=== PATIENT | male | born 1970 | race Caucasian/White ===

== ENCOUNTER → 2018-04-23 | Outpatient (CLI) | payer OTHER | LOC: M RAD 13:31 | DX: R50.9 Fever, unspecified (principal); R05 Cough | CPT/HCPCS: 71046 ==

== ENCOUNTER 2018-04-26 10:39 | Emergency (ER) | payer OTHER | END 2018-04-26 12:21 | disposition home or self-care (01) | LOC: M ED 10:39 | DX: J06.9 Acute upper respiratory infection, unspecified (principal); Z72.0 Tobacco use; Z79.899 Other long term (current) drug therapy | CPT/HCPCS: 99283 ==

== ENCOUNTER 2018-05-23 19:44 | Emergency (ER) | payer OTHER ==
[2018-05-23 21:07] LABS: BASO # 0.1 10^3/uL (0.0-0.2); BASO % 0.8 % (0.0-1.0); EOS # 0.5 10^3/uL (0.0-0.50); EOS % 3.1 % (0.0-3.0); HEMATOCRIT 42.8 % (42.0-52.0); HEMOGLOBIN 14.5 g/dl (13.5-17.5); IMMATURE GRANULOCYTE % 0.6 % (0-3.0); LYMPH # 2.8 10^3/uL (1.5-4.5); LYMPH % 19.3 % (24.0-44.0); MEAN CORPUSCULAR HEMOGLOBIN 29.5 pg (27.0-33.0); MEAN CORPUSCULAR HGB CONC 33.9 g/dl (32.0-36.5); MONO # 0.9 10^3/uL (0.0-0.8); MONO % 6.3 % (0.0-5.0); NEUTROPHILS % 69.9 % (36.0-66.0); PLATELET COUNT, AUTOMATED 292 10^3/uL (150-450); RED BLOOD COUNT 4.92 10^6/uL (4.30-6.10); RED CELL DISTRIBUTION WIDTH 12.1 % (11.5-14.5); WHITE BLOOD COUNT 14.4 10^3/uL (4.0-10.0)
[2018-05-23 21:24] LABS: ALBUMIN 3.1 GM/DL (3.2-5.2); ALBUMIN/GLOBULIN RATIO 0.69 (1.00-1.93); ALKALINE PHOSPHATASE 75 U/L (45-117); ALT/SGPT 29 U/L (12-78); ANION GAP 8 MEQ/L (8-16); AST/SGOT 20 U/L (7-37); BILIRUBIN,DIRECT 0.2 MG/DL (0.0-0.2); BILIRUBIN,TOTAL 0.4 MG/DL (0.2-1.0); BLOOD UREA NITROGEN 14 MG/DL (7-18); CARBON DIOXIDE LEVEL 28 MEQ/L (21-32); CHLORIDE LEVEL 104 MEQ/L (98-107); CPK CREATINE PHOSPHOKINASE 424 U/L (39-308); CREATININE FOR GFR 0.98 MG/DL (0.70-1.30); GLOMERULAR FILTRATION RATE > 60.0 (>60); GLUCOSE, FASTING 111 MG/DL (70-100); MB/CK RELATIVE INDEX 0.73 (< OR =4); SODIUM LEVEL 140 MEQ/L (136-145); TOTAL PROTEIN 7.6 GM/DL (6.4-8.2); TROPONIN I 0.02 NG/ML (< 0.10)
[2018-05-23 22:03] LABS: LACTIC ACID SEPSIS PROTOCOL 1.7 MMOL/L (0.4-2.0)
[2018-05-23 23:18] LABS: AMPHETAMINES LEVEL URINE NEGATIVE (NEGATIVE); BARBITURATES URINE NEGATIVE (NEGATIVE); BENZODIAZEPINES URINE NEGATIVE (NEGATIVE); CANNABINOIDS URINE NEGATIVE (NEGATIVE); COCAINE METABOLITE URINE NEGATIVE (NEGATIVE); METHADONE URINE NEGATIVE (NEGATIVE); OPIATES URINE NEGATIVE (NEGATIVE); PHENCYCLIDINE URINE NEGATIVE (NEGATIVE)
[2018-05-23] MEDS: levETIRAcetam INJection 1,000 MG in D5W 100 ML IV (23:45)
[2018-05-24] MEDS ORDERED: PROHANCE 279.3MG/ML 15ML VIAL (A9576) As Ordered (00:59)
[2018-05-24] MEDS ORDERED: PROHANCE 279.3MG/ML 5ML VIAL (A9576) As Ordered (00:59)
[2018-05-24] MEDS: dexameTHASONE 20 MG/5 ML VIAL (J1100) IV (04:13)
[2018-05-25 11:26] LABS: BEDSIDE GLUCOSE 118 MG/DL (70-105)
== END 2018-05-24 04:26 | disposition home or self-care (01) ==
LOC: M ED 05-24 04:26
DX: C79.31 Secondary malignant neoplasm of brain (principal); R56.9 Unspecified convulsions; R91.8 Other nonspecific abnormal finding of lung field; R00.0 Tachycardia, unspecified; J32.8 Other chronic sinusitis; Z79.899 Other long term (current) drug therapy
CPT/HCPCS: J1100

== ENCOUNTER → 2018-06-09 | Outpatient (REF) | payer OTHER ==
[2018-06-09 11:48] LABS: BASO # 0.1 10^3/uL (0.0-0.2); EOS # 1.3 10^3/uL (0.0-0.50); EOS % 11.6 % (0.0-3.0); HEMATOCRIT 41.1 % (42.0-52.0); HEMOGLOBIN 13.8 g/dl (13.5-17.5); IMMATURE GRANULOCYTE % 0.5 % (0-3.0); LYMPH # 2.6 10^3/uL (1.5-4.5); MEAN CORPUSCULAR HEMOGLOBIN 29.6 pg (27.0-33.0); MEAN CORPUSCULAR HGB CONC 33.6 g/dl (32.0-36.5); MEAN CORPUSCULAR VOLUME 88.2 fl (80.0-96.0); MONO # 0.8 10^3/uL (0.0-0.8); NEUTROPHILS % 55.9 % (36.0-66.0); PLATELET COUNT, AUTOMATED 281 10^3/uL (150-450); RED BLOOD COUNT 4.66 10^6/uL (4.30-6.10); RED CELL DISTRIBUTION WIDTH 12.7 % (11.5-14.5); WHITE BLOOD COUNT 10.8 10^3/uL (4.0-10.0)
[2018-06-09 12:31] LABS: BLOOD UREA NITROGEN 10 MG/DL (7-18); CARBON DIOXIDE LEVEL 26 MEQ/L (21-32); CHLORIDE LEVEL 105 MEQ/L (98-107); CREATININE FOR GFR 0.75 MG/DL (0.70-1.30); GLOMERULAR FILTRATION RATE > 60.0 (>60); GLUCOSE, FASTING 112 MG/DL (70-100); POTASSIUM SERUM 4.1 MEQ/L (3.5-5.1); SODIUM LEVEL 139 MEQ/L (136-145)
[2018-06-09 12:32] LABS: ALBUMIN 3.2 GM/DL (3.2-5.2); ALBUMIN/GLOBULIN RATIO 0.86 (1.00-1.93); ALKALINE PHOSPHATASE 66 U/L (45-117); ALT/SGPT 42 U/L (12-78); ANION GAP 8 MEQ/L (8-16); AST/SGOT 24 U/L (7-37); BILIRUBIN,TOTAL 0.3 MG/DL (0.2-1.0); C REACTIVE PROTEIN QUANTITATIV 2.22 MG/DL (0.00-0.30); TOTAL PROTEIN 6.9 GM/DL (6.4-8.2); VANCOMYCIN RANDOM 12.8 UG/ML
[2018-06-09 14:48] LABS: ERYTHROCYTE SEDIMENTATION RATE 126 mm/hr (0-15)
== END ==
LOC: M LAB REF 11:03
DX: R91.8 Other nonspecific abnormal finding of lung field (principal); G93.9 Disorder of brain, unspecified

== ENCOUNTER → 2018-06-12 | Outpatient (REF) | payer OTHER ==
[2018-06-12 10:58] LABS: BASO # 0.1 10^3/uL (0.0-0.2); BASO % 1.2 % (0.0-1.0); EOS % 9.2 % (0.0-3.0); HEMATOCRIT 43.4 % (42.0-52.0); IMMATURE GRANULOCYTE % 0.4 % (0-3.0); LYMPH # 2.6 10^3/uL (1.5-4.5); LYMPH % 23.7 % (24.0-44.0); MEAN CORPUSCULAR HEMOGLOBIN 30.2 pg (27.0-33.0); MEAN CORPUSCULAR HGB CONC 34.6 g/dl (32.0-36.5); MEAN CORPUSCULAR VOLUME 87.3 fl (80.0-96.0); MONO # 0.9 10^3/uL (0.0-0.8); MONO % 7.6 % (0.0-5.0); NEUTROPHILS # 6.5 10^3/uL (1.8-7.7); NEUTROPHILS % 57.9 % (36.0-66.0); PLATELET COUNT, AUTOMATED 314 10^3/uL (150-450); RED BLOOD COUNT 4.97 10^6/uL (4.30-6.10); RED CELL DISTRIBUTION WIDTH 12.8 % (11.5-14.5); WHITE BLOOD COUNT 11.2 10^3/uL (4.0-10.0)
[2018-06-12 11:26] LABS: ALBUMIN 3.4 GM/DL (3.2-5.2); ALBUMIN/GLOBULIN RATIO 0.83 (1.00-1.93); ALKALINE PHOSPHATASE 77 U/L (45-117); ALT/SGPT 39 U/L (12-78); ANION GAP 7 MEQ/L (8-16); AST/SGOT 16 U/L (7-37); BILIRUBIN,TOTAL 0.3 MG/DL (0.2-1.0); BLOOD UREA NITROGEN 14 MG/DL (7-18); C REACTIVE PROTEIN QUANTITATIV 0.63 MG/DL (0.00-0.30); CARBON DIOXIDE LEVEL 26 MEQ/L (21-32); CHLORIDE LEVEL 102 MEQ/L (98-107); CREATININE FOR GFR 0.97 MG/DL (0.70-1.30); GLOMERULAR FILTRATION RATE > 60.0 (>60); GLUCOSE, FASTING 126 MG/DL (70-100); POTASSIUM SERUM 4.5 MEQ/L (3.5-5.1); SODIUM LEVEL 135 MEQ/L (136-145); TOTAL PROTEIN 7.5 GM/DL (6.4-8.2); VANCOMYCIN RANDOM 14.4 UG/ML
[2018-06-12 11:41] LABS: ERYTHROCYTE SEDIMENTATION RATE 36 mm/hr (0-15)
== END ==
LOC: M LAB REF 10:47
DX: R91.8 Other nonspecific abnormal finding of lung field (principal); G03.9 Meningitis, unspecified; L02.91 Cutaneous abscess, unspecified; Z79.2 Long term (current) use of antibiotics

== ENCOUNTER → 2018-06-19 | Outpatient (REF) | payer OTHER ==
[2018-06-19 18:04] LABS: BASO # 0.2 10^3/uL (0.0-0.2); BASO % 1.8 % (0.0-1.0); EOS # 0.4 10^3/uL (0.0-0.50); HEMATOCRIT 43.9 % (42.0-52.0); HEMOGLOBIN 15.1 g/dl (13.5-17.5); IMMATURE GRANULOCYTE % 0.2 % (0-3.0); LYMPH # 2.1 10^3/uL (1.5-4.5); LYMPH % 23.6 % (24.0-44.0); MEAN CORPUSCULAR HEMOGLOBIN 30.4 pg (27.0-33.0); MEAN CORPUSCULAR HGB CONC 34.4 g/dl (32.0-36.5); MEAN CORPUSCULAR VOLUME 88.3 fl (80.0-96.0); MONO # 0.7 10^3/uL (0.0-0.8); MONO % 8.1 % (0.0-5.0); NEUTROPHILS # 5.5 10^3/uL (1.8-7.7); NEUTROPHILS % 62.3 % (36.0-66.0); PLATELET COUNT, AUTOMATED 317 10^3/uL (150-450); RED BLOOD COUNT 4.97 10^6/uL (4.30-6.10); WHITE BLOOD COUNT 8.8 10^3/uL (4.0-10.0)
[2018-06-19 18:30] LABS: ALBUMIN 3.3 GM/DL (3.2-5.2); ALBUMIN/GLOBULIN RATIO 0.83 (1.00-1.93); ALKALINE PHOSPHATASE 72 U/L (45-117); ALT/SGPT 29 U/L (12-78); ANION GAP 9 MEQ/L (8-16); AST/SGOT 17 U/L (7-37); BILIRUBIN,TOTAL 0.4 MG/DL (0.2-1.0); BLOOD UREA NITROGEN 12 MG/DL (7-18); CALCIUM LEVEL 8.6 MG/DL (8.5-10.1); CARBON DIOXIDE LEVEL 26 MEQ/L (21-32); CHLORIDE LEVEL 105 MEQ/L (98-107); CREATININE FOR GFR 0.96 MG/DL (0.70-1.30); GLOMERULAR FILTRATION RATE > 60.0 (>60); GLUCOSE, FASTING 117 MG/DL (70-100); POTASSIUM SERUM 4.1 MEQ/L (3.5-5.1); SODIUM LEVEL 140 MEQ/L (136-145); TOTAL PROTEIN 7.3 GM/DL (6.4-8.2); VANCOMYCIN RANDOM 12.5 UG/ML
[2018-06-19 19:41] LABS: ERYTHROCYTE SEDIMENTATION RATE 16 mm/hr (0-15)
[2018-06-23 10:25] LABS: C REACTIVE PROTEIN QUANTITATIV < 0.30 MG/DL (0.00-0.30)
== END ==
LOC: M LAB REF 16:40
DX: R91.8 Other nonspecific abnormal finding of lung field (principal); G93.9 Disorder of brain, unspecified; L02.91 Cutaneous abscess, unspecified; Z79.2 Long term (current) use of antibiotics

== ENCOUNTER → 2018-06-26 | Outpatient (REF) | payer OTHER ==
[2018-06-26 16:59] LABS: ALBUMIN 3.3 GM/DL (3.2-5.2); ALBUMIN/GLOBULIN RATIO 0.89 (1.00-1.93); ALKALINE PHOSPHATASE 70 U/L (45-117); ALT/SGPT 24 U/L (12-78); ANION GAP 8 MEQ/L (8-16); AST/SGOT 15 U/L (7-37); BILIRUBIN,TOTAL 0.3 MG/DL (0.2-1.0); BLOOD UREA NITROGEN 12 MG/DL (7-18); C REACTIVE PROTEIN QUANTITATIV 0.52 MG/DL (0.00-0.30); CARBON DIOXIDE LEVEL 26 MEQ/L (21-32); CHLORIDE LEVEL 104 MEQ/L (98-107); CREATININE FOR GFR 0.83 MG/DL (0.70-1.30); GLOMERULAR FILTRATION RATE > 60.0 (>60); GLUCOSE, FASTING 147 MG/DL (70-100); POTASSIUM SERUM 3.9 MEQ/L (3.5-5.1); SODIUM LEVEL 138 MEQ/L (136-145); VANCOMYCIN RANDOM 13.9 UG/ML
[2018-06-26 17:11] LABS: BASO # 0.1 10^3/uL (0.0-0.2); BASO % 0.7 % (0.0-1.0); EOS # 0.5 10^3/uL (0.0-0.50); EOS % 6.2 % (0.0-3.0); HEMOGLOBIN 14.6 g/dl (13.5-17.5); IMMATURE GRANULOCYTE % 0.4 % (0-3.0); LYMPH # 2.4 10^3/uL (1.5-4.5); LYMPH % 28.5 % (24.0-44.0); MEAN CORPUSCULAR HEMOGLOBIN 30.2 pg (27.0-33.0); MEAN CORPUSCULAR VOLUME 88.8 fl (80.0-96.0); MONO # 0.8 10^3/uL (0.0-0.8); MONO % 9.4 % (0.0-5.0); NEUTROPHILS # 4.5 10^3/uL (1.8-7.7); NEUTROPHILS % 54.8 % (36.0-66.0); PLATELET COUNT, AUTOMATED 240 10^3/uL (150-450); RED BLOOD COUNT 4.84 10^6/uL (4.30-6.10); RED CELL DISTRIBUTION WIDTH 12.8 % (11.5-14.5); WHITE BLOOD COUNT 8.3 10^3/uL (4.0-10.0)
[2018-06-26 18:13] LABS: ERYTHROCYTE SEDIMENTATION RATE 26 mm/hr (0-15)
== END ==
LOC: M LAB REF 15:25
DX: R91.8 Other nonspecific abnormal finding of lung field (principal); G93.9 Disorder of brain, unspecified; L02.91 Cutaneous abscess, unspecified; Z79.2 Long term (current) use of antibiotics

== ENCOUNTER → 2018-07-03 | Outpatient (REF) | payer OTHER ==
[2018-07-03 18:59] LABS: ALBUMIN 3.4 GM/DL (3.2-5.2); ALBUMIN/GLOBULIN RATIO 0.85 (1.00-1.93); ALKALINE PHOSPHATASE 75 U/L (45-117); ALT/SGPT 25 U/L (12-78); ANION GAP 9 MEQ/L (8-16); AST/SGOT 14 U/L (7-37); BILIRUBIN,TOTAL 0.5 MG/DL (0.2-1.0); BLOOD UREA NITROGEN 12 MG/DL (7-18); C REACTIVE PROTEIN QUANTITATIV 0.83 MG/DL (0.00-0.30); CALCIUM LEVEL 8.7 MG/DL (8.5-10.1); CARBON DIOXIDE LEVEL 26 MEQ/L (21-32); CHLORIDE LEVEL 102 MEQ/L (98-107); CREATININE FOR GFR 1.06 MG/DL (0.70-1.30); GLOMERULAR FILTRATION RATE > 60.0 (>60); GLUCOSE, FASTING 62 MG/DL (70-100); POTASSIUM SERUM 4.4 MEQ/L (3.5-5.1); SODIUM LEVEL 137 MEQ/L (136-145); TOTAL PROTEIN 7.4 GM/DL (6.4-8.2); VANCOMYCIN RANDOM 15.4 UG/ML
[2018-07-03 19:12] LABS: BASO # 0.1 10^3/uL (0.0-0.2); BASO % 0.8 % (0.0-1.0); EOS # 0.6 10^3/uL (0.0-0.50); EOS % 7.3 % (0.0-3.0); HEMATOCRIT 45.4 % (42.0-52.0); HEMOGLOBIN 15.1 g/dl (13.5-17.5); IMMATURE GRANULOCYTE % 0.5 % (0-3.0); LYMPH % 23.1 % (24.0-44.0); MEAN CORPUSCULAR HEMOGLOBIN 29.7 pg (27.0-33.0); MEAN CORPUSCULAR HGB CONC 33.3 g/dl (32.0-36.5); MEAN CORPUSCULAR VOLUME 89.4 fl (80.0-96.0); MONO # 0.9 10^3/uL (0.0-0.8); MONO % 10.5 % (0.0-5.0); NEUTROPHILS % 57.8 % (36.0-66.0); PLATELET COUNT, AUTOMATED 238 10^3/uL (150-450); RED BLOOD COUNT 5.08 10^6/uL (4.30-6.10); RED CELL DISTRIBUTION WIDTH 12.6 % (11.5-14.5); WHITE BLOOD COUNT 8.7 10^3/uL (4.0-10.0)
[2018-07-03 19:48] LABS: ERYTHROCYTE SEDIMENTATION RATE 11 mm/hr (0-15)
== END ==
LOC: M LAB REF 16:28
DX: Z78.1 Physical restraint status (principal); L02.91 Cutaneous abscess, unspecified; G93.9 Disorder of brain, unspecified; R91.8 Other nonspecific abnormal finding of lung field

== ENCOUNTER → 2018-07-10 | Outpatient (REF) | payer OTHER ==
[2018-07-10 17:37] LABS: BASO # 0.1 10^3/uL (0.0-0.2); BASO % 1.1 % (0.0-1.0); EOS # 0.4 10^3/uL (0.0-0.50); EOS % 5.9 % (0.0-3.0); HEMATOCRIT 44.8 % (42.0-52.0); HEMOGLOBIN 15.3 g/dl (13.5-17.5); IMMATURE GRANULOCYTE % 0.6 % (0-3.0); LYMPH # 1.8 10^3/uL (1.5-4.5); LYMPH % 25.3 % (24.0-44.0); MEAN CORPUSCULAR HEMOGLOBIN 30.2 pg (27.0-33.0); MEAN CORPUSCULAR HGB CONC 34.2 g/dl (32.0-36.5); MEAN CORPUSCULAR VOLUME 88.4 fl (80.0-96.0); MONO # 0.8 10^3/uL (0.0-0.8); MONO % 11.9 % (0.0-5.0); NEUTROPHILS # 3.9 10^3/uL (1.8-7.7); NEUTROPHILS % 55.2 % (36.0-66.0); PLATELET COUNT, AUTOMATED 238 10^3/uL (150-450); RED BLOOD COUNT 5.07 10^6/uL (4.30-6.10); RED CELL DISTRIBUTION WIDTH 12.7 % (11.5-14.5); WHITE BLOOD COUNT 7.1 10^3/uL (4.0-10.0)
[2018-07-10 17:44] LABS: ALBUMIN 3.6 GM/DL (3.2-5.2); ALBUMIN/GLOBULIN RATIO 0.95 (1.00-1.93); ALKALINE PHOSPHATASE 81 U/L (45-117); ALT/SGPT 28 U/L (12-78); ANION GAP 8 MEQ/L (8-16); AST/SGOT 14 U/L (7-37); BILIRUBIN,TOTAL 0.4 MG/DL (0.2-1.0); BLOOD UREA NITROGEN 11 MG/DL (7-18); CALCIUM LEVEL 9.3 MG/DL (8.5-10.1); CARBON DIOXIDE LEVEL 25 MEQ/L (21-32); CHLORIDE LEVEL 102 MEQ/L (98-107); CREATININE FOR GFR 0.86 MG/DL (0.70-1.30); GLOMERULAR FILTRATION RATE > 60.0 (>60); GLUCOSE, FASTING 140 MG/DL (70-100); POTASSIUM SERUM 4.1 MEQ/L (3.5-5.1); SODIUM LEVEL 135 MEQ/L (136-145); TOTAL PROTEIN 7.4 GM/DL (6.4-8.2); VANCOMYCIN RANDOM 14.8 UG/ML
[2018-07-10 18:13] LABS: ERYTHROCYTE SEDIMENTATION RATE 28 mm/hr (0-15)
== END ==
LOC: M LAB REF 16:32
DX: R91.8 Other nonspecific abnormal finding of lung field (principal); G93.9 Disorder of brain, unspecified; L02.91 Cutaneous abscess, unspecified; Z79.2 Long term (current) use of antibiotics

== ENCOUNTER → 2018-08-07 | Outpatient (CLI) | payer OTHER ==
[~2018-08-07] MED LIST: ACET-683 PO; BENZ200C70 PO; DECA4TAB PO; DORZ2SOL5 OP; KEPP1TAB PO; LEVO500T3 PO; MUCI600T37 PO; VENTAER INH
[2018-08-07 15:25] LABS: BASO # 0.1 10^3/uL (0.0-0.2); BASO % 1.3 % (0.0-1.0); EOS # 0.2 10^3/uL (0.0-0.50); EOS % 2.6 % (0.0-3.0); HEMATOCRIT 46.7 % (42.0-52.0); LYMPH # 1.8 10^3/uL (1.5-4.5); MEAN CORPUSCULAR HEMOGLOBIN 29.7 pg (27.0-33.0); MEAN CORPUSCULAR HGB CONC 34.3 g/dl (32.0-36.5); MEAN CORPUSCULAR VOLUME 86.8 fl (80.0-96.0); MONO # 0.6 10^3/uL (0.0-0.8); MONO % 7.5 % (0.0-5.0); NEUTROPHILS # 4.9 10^3/uL (1.8-7.7); NEUTROPHILS % 64.3 % (36.0-66.0); PLATELET COUNT, AUTOMATED 251 10^3/uL (150-450); RED BLOOD COUNT 5.38 10^6/uL (4.30-6.10); WHITE BLOOD COUNT 7.6 10^3/uL (4.0-10.0)
[2018-08-07 15:47] LABS: ALBUMIN 3.6 GM/DL (3.2-5.2); ALT/SGPT 25 U/L (12-78); BILIRUBIN,TOTAL 0.2 MG/DL (0.2-1.0); BLOOD UREA NITROGEN 16 MG/DL (7-18); CALCIUM LEVEL 9.2 MG/DL (8.5-10.1); CARBON DIOXIDE LEVEL 27 MEQ/L (21-32); CHLORIDE LEVEL 104 MEQ/L (98-107); CREATININE FOR GFR 1.24 MG/DL (0.70-1.30); GLOMERULAR FILTRATION RATE > 60.0 (>60); GLUCOSE, FASTING 132 MG/DL (70-100); POTASSIUM SERUM 4.1 MEQ/L (3.5-5.1); SODIUM LEVEL 140 MEQ/L (136-145); TOTAL PROTEIN 7.5 GM/DL (6.4-8.2)
== END ==
LOC: M LAB 15:02
PROVIDERS: ATTEND Internal Medicine
DX: J85.1 Abscess of lung with pneumonia (principal); G93.9 Disorder of brain, unspecified; R05 Cough; B58.9 Toxoplasmosis, unspecified; Z45.2 Encounter for adjustment and management of vascular access device; R25.1 Tremor, unspecified

== ENCOUNTER → 2018-09-20 | Outpatient (CLI) | payer OTHER | LOC: M LAB 13:52 | PROVIDERS: ATTEND Internal Medicine | DX: R91.8 Other nonspecific abnormal finding of lung field (principal); G93.9 Disorder of brain, unspecified; L02.91 Cutaneous abscess, unspecified; Z79.2 Long term (current) use of antibiotics ==

== ENCOUNTER → 2018-12-25 | Outpatient (CLI) | payer OTHER ==
[2018-12-25 20:25] LABS: BASO # 0.1 10^3/uL (0.0-0.2); BASO % 1.2 % (0.0-1.0); EOS # 0.2 10^3/uL (0.0-0.50); EOS % 2.3 % (0.0-3.0); HEMATOCRIT 47.7 % (42.0-52.0); HEMOGLOBIN 16.7 g/dl (13.5-17.5); LYMPH # 2.6 10^3/uL (1.5-4.5); LYMPH % 31.6 % (24.0-44.0); MEAN CORPUSCULAR HEMOGLOBIN 31.6 pg (27.0-33.0); MEAN CORPUSCULAR VOLUME 90.2 fl (80.0-96.0); MONO # 0.6 10^3/uL (0.0-0.8); NEUTROPHILS # 4.7 10^3/uL (1.8-7.7); NEUTROPHILS % 57.5 % (36.0-66.0); PLATELET COUNT, AUTOMATED 233 10^3/uL (150-450); RED BLOOD COUNT 5.29 10^6/uL (4.30-6.10); WHITE BLOOD COUNT 8.1 10^3/uL (4.0-10.0)
[2018-12-25 20:28] LABS: ALBUMIN 3.7 GM/DL (3.2-5.2); BILIRUBIN,TOTAL 0.4 MG/DL (0.2-1.0); C REACTIVE PROTEIN QUANTITATIV 0.53 MG/DL (0.00-0.30); CREATININE FOR GFR 1.39 MG/DL (0.70-1.30); GLOMERULAR FILTRATION RATE 57.6 (>56); POTASSIUM SERUM 4.1 MEQ/L (3.5-5.1); TOTAL PROTEIN 7.5 GM/DL (6.4-8.2)
[2018-12-25 21:37] LABS: ERYTHROCYTE SEDIMENTATION RATE 5 mm/hr (0-20)
== END ==
LOC: M LAB 19:32
PROVIDERS: ATTEND Internal Medicine Infectious Disease
DX: R91.8 Other nonspecific abnormal finding of lung field (principal); R05 Cough; R06.02 Shortness of breath; Z79.2 Long term (current) use of antibiotics

== ENCOUNTER → 2019-02-04 | Outpatient (CLI) | payer OTHER ==
[2019-02-04 17:08] LABS: BASO # 0.1 10^3/uL (0.0-0.2); BASO % 0.8 % (0.0-1.0); EOS # 0.2 10^3/uL (0.0-0.50); EOS % 2.5 % (0.0-3.0); HEMOGLOBIN 16.4 g/dl (13.5-17.5); LYMPH # 2.9 10^3/uL (1.5-4.5); LYMPH % 30.4 % (24.0-44.0); MEAN CORPUSCULAR HEMOGLOBIN 31.4 pg (27.0-33.0); MEAN CORPUSCULAR HGB CONC 34.9 g/dl (32.0-36.5); MONO # 0.7 10^3/uL (0.0-0.8); MONO % 7.3 % (0.0-5.0); NEUTROPHILS # 5.5 10^3/uL (1.8-7.7); NEUTROPHILS % 58.7 % (36.0-66.0); PLATELET COUNT, AUTOMATED 230 10^3/uL (150-450); RED BLOOD COUNT 5.22 10^6/uL (4.30-6.10); WHITE BLOOD COUNT 9.4 10^3/uL (4.0-10.0)
[2019-02-04 17:45] LABS: ALBUMIN 3.7 GM/DL (3.2-5.2); ALT/SGPT 39 U/L (12-78); BILIRUBIN,TOTAL 0.7 MG/DL (0.2-1.0); BLOOD UREA NITROGEN 18 MG/DL (7-18); CALCIUM LEVEL 9.5 MG/DL (8.5-10.1); CARBON DIOXIDE LEVEL 25 MEQ/L (21-32); CHLORIDE LEVEL 108 MEQ/L (98-107); CREATININE FOR GFR 0.99 MG/DL (0.70-1.30); GLOMERULAR FILTRATION RATE > 60.0 (>56); GLUCOSE, FASTING 100 MG/DL (70-100); POTASSIUM SERUM 3.9 MEQ/L (3.5-5.1); SODIUM LEVEL 141 MEQ/L (136-145); TOTAL PROTEIN 7.2 GM/DL (6.4-8.2)
== END ==
LOC: M LAB 16:41
PROVIDERS: ATTEND Internal Medicine
DX: B58.9 Toxoplasmosis, unspecified (principal); G93.9 Disorder of brain, unspecified; R91.8 Other nonspecific abnormal finding of lung field; Z79.899 Other long term (current) drug therapy; R59.0 Localized enlarged lymph nodes; J84.10 Pulmonary fibrosis, unspecified; R51 Headache; R05 Cough; J85.1 Abscess of lung with pneumonia

== ENCOUNTER → 2019-07-10 | Outpatient (REF) | payer OTHER ==
[2019-07-10 22:35] LABS: INFLUENZA A AMPLIFICATION NEGATIVE (NEGATIVE); INFLUENZA B AMPLIFICATION NEGATIVE (NEGATIVE)
== END ==
LOC: M LAB REF 10:45
PROVIDERS: ATTEND Physician Assistant Medical
DX: J11.1 Influenza due to unidentified influenza virus with other respiratory manifestations (principal)

== ENCOUNTER 2019-07-17 09:02 | Inpatient (IN) | payer OTHER ==
[~2019-07-17] VITALS: Ht 182.9 cm; Wt 147.5 kg
[2019-07-17 09:57] LABS: BASO # 0.1 10^3/uL (0.0-0.2); BASO % 0.9 % (0.0-1.0); EOS # 0.2 10^3/uL (0.0-0.5); EOS % 1.6 % (0.0-3.0); HEMATOCRIT 43.3 % (42.0-52.0); HEMOGLOBIN 14.9 g/dl (13.5-17.5); LYMPH # 1.6 10^3/uL (1.5-5.0); LYMPH % 12.4 % (24.0-44.0); MEAN CORPUSCULAR HEMOGLOBIN 30.5 pg (27.0-33.0); MEAN CORPUSCULAR HGB CONC 34.4 g/dl (32.0-36.5); MEAN CORPUSCULAR VOLUME 88.5 fl (80.0-96.0); MONO % 8.2 % (0.0-5.0); NEUTROPHILS # 9.7 10^3/uL (1.5-8.5); NEUTROPHILS % 76.3 % (36.0-66.0); PLATELET COUNT, AUTOMATED 323 10^3/uL (150-450); RED BLOOD COUNT 4.89 10^6/uL (4.30-6.10); WHITE BLOOD COUNT 12.6 10^3/uL (4.0-10.0)
--- NOTE | 2019-07-17 10:08 | REP ---
Clinical: Syncope/near syncope Comparison: 05/03/2018. Findings: Cardiomegaly. Previous adenopathy is again suggested. A new somewhat triangular area of density in the right upper lobe measures roughly 4.4 x 2.2 cm and is concerning for mass. Diffuse chronic interstitial changes are appreciated. Subtle superimposed reticulonodular bibasilar changes along with small ill-defined opacities at the left base are also identified. No effusion. No pneumothorax. Skeletal structures intact. Impression: 1. Triangular area of density in the right upper lung zone concerning for mass along with superimposed reticulonodular bibasilar opacities and small ill-defined areas of density in the left base. 2. Previously noted hilar adenopathy cannot be excluded. Electronically Signed by Heladio Sena MD 07/17/2019 09:59 A
[2019-07-17 10:31] LABS: BLOOD UREA NITROGEN 17 MG/DL (7-18); CALCIUM LEVEL 8.8 MG/DL (8.5-10.1); CARBON DIOXIDE LEVEL 25 MEQ/L (21-32); CHLORIDE LEVEL 107 MEQ/L (98-107); CK-MB VALUE MASS 2.7 NG/ML (<3.6); CPK CREATINE PHOSPHOKINASE 323 U/L (39-308); CREATININE FOR GFR 0.95 MG/DL (0.70-1.30); GLOMERULAR FILTRATION RATE > 60.0 (>56); GLUCOSE, FASTING 168 MG/DL (70-100); MB/CK RELATIVE INDEX 0.84 (< OR =4); POTASSIUM SERUM 4.2 MEQ/L (3.5-5.1); SODIUM LEVEL 139 MEQ/L (136-145); THYROID STIMULATING HORMONE 0.527 uIU/ML (0.358-3.740); TROPONIN I < 0.02 NG/ML (< 0.10)
[2019-07-17] MEDS ORDERED: ISOVUE-370 76% 100ML VIAL (Q9967) As Ordered ONE (10:34)
[2019-07-17] MEDS ORDERED: ACETAMINOPHEN TAB 650MG DOSE (2X325MG) PO ONE (10:45)
[2019-07-17 10:52] LABS: ALBUMIN 2.9 GM/DL (3.2-5.2); ALT/SGPT 34 U/L (12-78); BILIRUBIN,DIRECT 0.2 MG/DL (0.0-0.2); BILIRUBIN,TOTAL 0.6 MG/DL (0.2-1.0)
--- NOTE | 2019-07-17 11:16 | REP ---
Clinical: Syncope. Technique: Axial contrast enhanced images from the thoracic inlet to the upper abdomen with coronal and sagittal re-formations and MIP images using pulmonary embolus technique. 75 ml Isovue 370 intravenous contrast material administered without complication. Findings: Examination is somewhat limited by technical factors. However, no obvious pulmonary embolus is identified. Thoracic aorta is without aneurysm or dissection. Heart and pericardium are grossly normal. Extensive mediastinal and hilar adenopathy is appreciated along with moderate area of consolidation with air bronchogram extending from the right hilum to the posterior right upper lobe as well as smaller areas of consolidation in the apical segment left lower lobe, posterior left lower lobe, and lingula. Prominent tree-in-bud/fine reticulonodular interstitial changes are also appreciated involving the lingula and left lower lobe and to a lesser extent the medial right lower lobe. Findings are concerning for an acute multifocal process including neoplasm and multifocal pneumonia. A few scattered calcified granulomata up to 4.5 mm noted. No effusion. No pneumothorax. Tracheobronchial tree is patent. Surrounding musculoskeletal structures are intact. Limited upper abdomen demonstrates normal bilateral adrenal glands. Impression: 1. Adenopathy with areas of consolidation and fine reticulonodular interstitial changes as detailed above. Differential diagnosis includes neoplasm and acute multifocal pneumonia. 2. No evidence for pulmonary embolus. Normal thoracic aorta. Electronically Signed by Heladio Sena MD 07/17/2019 11:08 A
--- NOTE | 2019-07-17 11:21 | REP ---
CT brain: 07/17/2019. Indication: Head trauma. Comparison: 05/23/2019. Technique: Unenhanced axial CT images of the brain were obtained from skull base to vertex. Findings: There is no acute intracranial hemorrhage, acute cortical infarction, mass effect, hydrocephalus or acute calvarial fracture. The previously described areas of edema are no longer evident. Impression: No acute intracranial process. Electronically Signed by Jason Carrera DO 07/17/2019 11:13 A
--- NOTE | 2019-07-17 11:32 | REP ---
CT cervical spine: 07/17/2019. Indication: Cervical spine trauma. Comparison: None. Technique: Unenhanced axial CT images of the cervical spine were obtained with coronal and sagittal reconstructions provided. Findings: There is no acute fracture, subluxation or dislocation. The lower cervical spine is suboptimally evaluated secondary to quantum mottle artifact. There is no hemorrhage or additional acute post traumatic pathology is within the spinal canal detected. Impression: No acute osseous injuries of the cervical spine. Electronically Signed by Jason Carrera DO 07/17/2019 11:24 A
[2019-07-17 12:02] LABS: PARTIAL THROMBOPLASTIN TIME 27.7 SECONDS (25.0-38.4)
[2019-07-17 12:10] LABS: INR 1.22; PROTHROMBIN TIME 15.1 SECONDS (11.8-14.0)
[2019-07-17] MEDS ORDERED: APAP325T4 PO (14:25)
[2019-07-17] MEDS ORDERED: VENTAER INH (14:25)
[2019-07-17] MEDS ORDERED: MUCI600T31 PO (14:25)
[2019-07-17] MEDS ORDERED: NS 1,000 ML IV ONE (14:30)
[2019-07-17] MEDS ORDERED: LevoFLOXacin IV 750 MG in IV 1 EA IV ONE (14:30)
[2019-07-17] MEDS ORDERED: ALBUTEROL SULFATE 2.5 MG/0.5 ML INH NEB SOLN INH ONE (14:30)
--- NOTE | 2019-07-17 16:01 | HPEPDOC ---
[facility] Medical History & Physical Date of Admission Jul 17, 2019 Date of Service: Jul 17, 2019 Attending Physician: ISAURA CAMPOS MD History and Physical CHIEF COMPLAINT: Cough and syncope HISTORY OF PRESENT ILLNESS: 48-year-old male with past medical history of Mycobacterium jose l complex (untreated) and toxoplasmosis (treated last year), presents from home with cough and syncope. Patient reports experiencing cough with associated fever, chills and night sweats for the past 10 days. He had a s yncopal episode twice during this time, both times while he was coughing. He denies any history of malignancy/HIV/liver disease/diabetes/immune suppressants/IV drug use/being incarcerated. He does report his boss who is also experiencing cough and fever and recently traveled to [facility]. He never got treatment for Mycobacterium avium complex because he did not want to deal with the number of medications and duration of treatment. He has been following with infectious disease at [place] for the past year, last visit was in April when they told him that everything was fine and he no longer needed to follow- up. He reports completing treatment for toxoplasmosis in January of this year. Patient reports having a normal CAT scan in January/February of this year. He denies any personal or family history of lung cancer. He denies any chest pain, nausea, vomiting, abdominal pain or diarrhea at this time. 10 point review of system is negative except for above PAST MEDICAL HISTORY: 1. Mycobacterium avium complex. 2. Toxoplasmosis. PAST SURGICAL HISTORY: 1. None. SOCIAL HISTORY: Never smoker. Denies alcohol. Denies drug use FAMILY HISTORY: Father with prostate cancer ALLERGIES: Please see below. HOME MEDICATIONS: Please see below. PHYSICAL EXAMINATION: VITAL SIGNS: Please see below. GENERAL: No distress HEENT: Normocephalic, atraumatic, moist mucous membranes NECK: Supple CARDIOVASCULAR EXAMINATION: S1, S2, no murmurs RESPIRATORY EXAMINATION: Scattered rhonchi, no wheezing ABDOMINAL EXAMINATION: Soft, nontender, nondistended, positive bowel sounds EXTREMITIES: Range of motion intact SKIN: No rash NEUROLOGICAL EXAMINATION: Alert and oriented 3, no focal deficits PSYCHIATRIC EXAMINATION: Calm and cooperative LABORATORY DATA: See below. IMAGING: CT chest with right upper lobe mass concerning for malignancy/Infection MICROBIOLOGY: Please see below. ASSESSMENT: 48-year-old male with history of untreated Mycobacterium avium complex and toxoplasmosis presents with symptoms concerning for pulmonary tuberculosis/Mycobacterium avium complex. PLAN: 1. Possible Mycobacterium infection. History of untreated Mycobacterium avium complex, currently experiencing daily fever, chills, night sweats for the past 10 days with right upper lobe lesion seen on CAT scan. Airborne isolation, AFB smear, sputum and blood cultures, ID consulted. 2. History of toxoplasmosis Treated, patient does not report any history of immunosuppression, HIV ordered. 3. Syncope Likely neurally mediated syncope, situational, due to cough. DVT prophylaxis: Heparin subcutaneous GI prophylaxis: Not needed Vital Signs Vital Signs Date Time Temp Pulse Resp B/P (MAP) Pulse Ox O2 Delivery O2 Flow Rate FiO2 07/17/19 14:43 87 18 121/75 (90) 90 Room Air 07/17/19 09:02 97.6 Laboratory Data Labs 24H Laboratory Tests 2 07/17/19 09:34: Immature Granulocyte % (Auto) 0.6, Neutrophils (%) (Auto) 76.3H, Lymphocytes (%) (Auto) 12.4L, Monocytes (%) (Auto) 8.2H, Eosinophils (%) (Auto) 1.6, Basophils (%) (Auto) 0.9, Neutrophils # (Auto) 9.7H, Lymphocytes # (Auto) 1.6, Monocytes # (Auto) 1.0H, Eosinophils # (Auto) 0.2, Basophils # (Auto) 0.1, Nucleated Red Blood Cells % (auto) 0.0, Anion Gap 7L, Glomerular Filtration Rate > 60.0, Calcium Level 8.8, Total Bilirubin 0.6, Direct Bilirubin 0.2, Aspartate Amino Transf (AST/SGOT) 21, Alanine Aminotransferase (ALT/SGPT) 34, Alkaline Ph osphatase 61, Total Creatine Kinase 323H, Creatine Kinase MB 2.7, Creatine Kinase MB Relative Index 0.84, Troponin I < 0.02, C-Reactive Protein, Quantitative 10.10H, Total Protein 7.0, Albumin 2.9L, Albumin/Globulin Ratio 0.71L, Thyroid Stimulating Hormone (TSH) 0.527 07/17/19 11:23: Prothrombin Time 15.1H, Prothromb Time International Ratio 1.22, Activated Partial Thromboplast Time 27.7 CBC/BMP Laboratory Tests 07/17/19 09:34 Microbiology Microbiology 07/17/19 Respiratory Virus Panel (PCR) ([facility]) - Final, Complete 07/17/19 Blood Culture, Received Pending 07/17/19 Blood Culture, Received Pending Home Medications Scheduled Guaifenesin (Mucinex) 600 Mg Tab.er.12h, 600 MG PO BID Scheduled PRN Acetaminophen (Acetaminophen) 325 Mg Tablet, 975 MG PO TID PRN for PAIN / FEVER Albuterol Sulfate (Ventolin Hfa) 18 Gm Hfa.aer.ad, 2 PUFF INH Q6H PRN for SHORTNESS OF BREATH Allergies Coded Allergies: cephalexin (Verified Allergy, Intermediate, rash, 07/17/19) A-FIB/CHADSVASC A-FIB History Current/History of A-Fib/PAF?: No ISAURA CAMOPS MD Jul 17, 2019 16:01
--- NOTE | 2019-07-17 17:08 | ECGEPIP ---
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
[2019-07-17] MEDS: NS 1,000 ML IV SCH (18:18)
[2019-07-17 18:59] VITALS: BP 118/76
[2019-07-17] MEDS ORDERED: SODIUM CHLORIDE HYPERTONIC 3% 15ML NEB SOL NEB ONE (19:15)
[2019-07-17] MEDS: guaiFENesin ER 600 MG TAB PO SCH (21:20)
[2019-07-17] MEDS: HEPARIN SOD (PORCINE) 5000 UNITS/ML VIAL SC SCH (21:21)
--- NOTE | 2019-07-17 21:51 | CR ---
DATE OF CONSULTATION: 07/17/2019 INFECTIOUS DISEASE CONSULTATION Asked to consult by Dr. Caruso for evaluation of flu-like illness and cough with abnormal CT scan. HISTORY OF PRESENT ILLNESS: Mr. Salgado is a 48-year-old gentleman with a past medical history significant for brain abscess diagnosed in May of 2018. I do not have the record from that hospitalization as he was taken care of at [facility] by Dr. Jauregui, but from what the patient could tell me, he was diagnosed with toxoplasmosis brain abscess that was treated with IV vancomycin and possibly Rocephin through a peripherally inserted central catheter (PICC) line from May to June of 2018. His erythrocyte sedimentation rate (ESR) was 126. I could see there was vancomycin trough done weekly. The patient had presented to [facility] emergency room during that time with seizure disorder that occurred after he had been sick for a couple weeks prior. Eventually he had positive toxoplasma titers and was treated for toxoplasmosis. He never had a brain biopsy. He was treated with broad-spectrum antibiotics through a PICC line with 6 weeks of antibiotics, and he also was treated with Daraprim for toxoplasmosis until February of 2019. He had followup MRIs of his brain and chest CTs, and according to the patient, his last visit was in March, and he was discharged from the infectious disease clinic with a [facility]. He stated that this illness started about 10 days ago with fever, chills and night sweats, then he developed cough, worsening shortness of breath about the past 6 days. His cough got progressively worse until he had two syncopal episodes, the one today he landed on his head and his left shoulder. He was at home and was brought into the emergency room. He denies any nausea, vomiting or diarrhea. He does complain of being cold. He has no chest pain or hemoptysis. No history of lung cancer or immune suppression. The patient states he thinks he was HIV tested in [place], but is not for sure. He is . He lives with his . They have a 12-year-old child. PAST MEDICAL HISTORY: Mycobacterium avium complex on previous sputum that was thought to be colonization and never treated. History of a pleural effusion that needed thoracentesis in [place] in May of 2018. History of toxoplasmosis with three brain abscesses on MRI in May of 2018, measuring about 1.8 cm and right posterior frontal lobe, posterior parietal lobe and parietal occipital lobe. The patient was supposed to remain on Keppra, but he has discontinued that and is not taking any medication at this time. PAST SURGICAL HISTORY: Colonoscopy in September of [address] Noland. ALLERGIES: CEPHALEXIN. SOCIAL HISTORY: He smokes a cigar every day. He denies alcohol or drug use. 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 He lives with his ; they have a 12-year-old child. FAMILY HISTORY: Father with prostate cancer. MEDICATIONS: - Mucinex 600 mg twice a day - albuterol inhaler as needed - Tylenol CURRENT MEDICATIONS: He received levofloxacin 750 mg IV one-time dose and albuterol in the ER. No further medications have been given at this point. LABS: White count 12.6, hemoglobin 14.9, hematocrit 43.3, platelets 323, 76% neutrophils, 12.4 lymphocytes, 8% monocytes. Sodium 139, potassium 4.2, chloride 107, bicarbonate 25, BUN 17, creatinine 0.95, glucose 168, calcium 8.8, bilirubin 0.2, AST 21, ALT 34, alkaline phosphatase 61, CPK 323, CRP 10.1, total protein 7, albumin 2.9, TSH 0.527. Respiratory panel was negative on 07/17/2019. Influenza A and B was negative on 07/10/2019. He had gone to an urgent care for evaluation. PHYSICAL EXAMINATION: On physical exam, he is a healthy, obese gentleman in no acute distress, mildly short of breath. Vital signs: Temperature is 99.6 max, pulse 97, respirations 20, blood pressure 118/76, oxygen saturation 90% on 2 liters nasal cannula. Heart: Normal S1, S2, tachycardiac. No murmurs, rubs or gallops. Lungs: Diminished breath sounds at the bases. No wheezes. Abdomen: Obese, soft, nontender. No hepatosplenomegaly. Extremities: Trace edema bilaterally. Skin: No rashes. Neck is supple. No jugular venous distention (JVD). No adenopathy. X-RAYS: CT angiogram done on 07/17/2019 shows extensive mediastinal and hilar adenopathy with moderate area of consolidation with air bronchograms extending from the right hilum to the posterior right upper lobe, small areas of consolidation in the left lower lobe, posterior left lower lobe and lingula, prominent tree-in-bud with reticulonodular interstitial changes also appreciated involving the lingula, concerning for neoplasm versus multifocal pneumonia. There is no evidence of pulmonary embolism. Normal thoracic aorta. Cervical spine CT showed no acute osseous injuries of the cervical spine. CT head shows no acute intracranial process. This was done without contrast. Chest x-ray, portable, shows density in the right upper lung zone, concerning for mass along with superimposed reticulonodular bibasilar opacities. IMPRESSION: This is an intriguing 48-year-old gentleman who had an illness about a year ago with what he describes as toxoplasma brain abscesses, treated with IV antibiotics for 6 weeks along with Daraprim. He never had a brain biopsy. He denies any history of immunosuppression and denies having a history of HIV. He has followed up at the infectious disease clinic for the past [address] danielle Jauregui Supposedly was doing very well by the end of the summer and now presents with a pneumonia, mostly involving the right upper lobe with also evidence of reticulonodular infiltrates in the lower lobes. He also reports a previous history of Mycobacterium avium complex, colonization versus infection is not clear to me, but that was decided not to be treated as the patient was not symptomatic. At this point, the patient has what seems to me like a post viral right upper lobe pneumonia that needs to be addressed with broad-spectrum antibiotics. PLAN Sputum Gram stain and culture will be obtained. Urine Legionella and pneumococcal antigen. Sputum induction will be obtained tomorrow for AFB fungal smear and culture. I have also ordered fungal serology, Histoplasma and Cryptococcus. Please make the patient sign a release to get his records from [facility]. HIV testing was ordered. I will also obtain immunoglobulin levels including IgG, IgM, IgA, IgG subclasses and CD4 count as there is in entity called CD4 lymphopenia in non-HIV patients who can present with low CD4 count and have opportunistic infections the same as HIV. Will also obtain methicillin- resistant Staphylococcus aureus (MRSA) screen. The patient does not look like he has a necrotizing pneumonia from MRSA. If MRSA is negative, I would not recommend using IV vancomycin. For the time being, he will be treated as if he has a community-acquired pneumonia with levofloxacin. [facility]
[2019-07-17 22:00] VITALS: BP 122/81
[2019-07-18] MEDS: ACETAMINOPHEN TAB 650MG DOSE (2X325MG) PO PRN ×3 (01:04→21:05)
[2019-07-18] MEDS: NS 1,000 ML IV SCH ×2 (03:35→12:26)
[2019-07-18 06:00] VITALS: BP 121/84
[2019-07-18] MEDS ORDERED: SODIUM CHLORIDE HYPERTONIC 3% 15ML NEB SOL INH ONE (06:00)
[2019-07-18] MEDS: HEPARIN SOD (PORCINE) 5000 UNITS/ML VIAL SC SCH ×3 (06:13→21:05)
[2019-07-18 06:22] LABS: HEMATOCRIT 42.7 % (42.0-52.0); HEMOGLOBIN 14.4 g/dl (13.5-17.5); MEAN CORPUSCULAR HEMOGLOBIN 30.4 pg (27.0-33.0); MEAN CORPUSCULAR HGB CONC 33.7 g/dl (32.0-36.5); MEAN CORPUSCULAR VOLUME 90.3 fl (80.0-96.0); PLATELET COUNT, AUTOMATED 310 10^3/uL (150-450); RED BLOOD COUNT 4.73 10^6/uL (4.30-6.10); WHITE BLOOD COUNT 11.2 10^3/uL (4.0-10.0)
[2019-07-18 06:51] LABS: ALBUMIN 2.9 GM/DL (3.2-5.2); ALT/SGPT 41 U/L (12-78); BILIRUBIN,TOTAL 0.7 MG/DL (0.2-1.0); BLOOD UREA NITROGEN 16 MG/DL (7-18); CALCIUM LEVEL 8.5 MG/DL (8.5-10.1); CARBON DIOXIDE LEVEL 25 MEQ/L (21-32); CHLORIDE LEVEL 109 MEQ/L (98-107); CREATININE FOR GFR 0.88 MG/DL (0.70-1.30); GLOMERULAR FILTRATION RATE > 60.0 (>56); GLUCOSE, FASTING 116 MG/DL (70-100); IMMUNOGLOBULIN G 1330 MG/DL (681-1648); IMMUNOGLOBULIN M 87.6 MG/DL (40-230); MAGNESIUM LEVEL 2.2 MG/DL (1.8-2.4); POTASSIUM SERUM 4.4 MEQ/L (3.5-5.1); SODIUM LEVEL 139 MEQ/L (136-145); TOTAL PROTEIN 6.9 GM/DL (6.4-8.2)
[2019-07-18] MEDS: guaiFENesin ER 600 MG TAB PO SCH ×2 (08:50→21:04)
[2019-07-18] MEDS ORDERED: MORPHINE 2 MG/ML 1ML VIAL (J2270) IV ONE (09:30)
[2019-07-18] MEDS: CYCLOBENZAPRINE 5MG TABLET PO PRN (12:26)
[2019-07-18] MEDS: LevoFLOXacin IV 750 MG in IV 1 EA IV SCH (12:26)
[2019-07-18 14:00] VITALS: BP 124/84
[2019-07-18] MEDS: MORPHINE 2 MG/ML 1ML VIAL (J2270) IV PRN (14:47)
--- NOTE | 2019-07-18 19:59 | IPNPDOC ---
Date Seen The patient was seen on 07/18/19. 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 Patient reports experiencing cough with associated fever, chills and night sweats for the past 10 days. He had a syncopal episode twice during this time, both times while he was coughing. He denies any history of malignancy/HIV/liver disease/diabetes/immune suppressants/IV drug use/being incarcerated. He does report his boss who is also experiencing cough and fever and recently traveled to [facility]. He never got treatment for Mycobacterium avium complex because he did not want to deal with the number of medications and duration of treatment. He has been following with infectious disease at [place] for the past year, last visit was in April when they told him that everything was fine and he no longer needed to follow- up. He reports completing treatment for toxoplasmosis in January of this year. Patient reports having a normal CAT scan in January/February of this year. He denies any personal or family history of lung cancer. He denies any chest pain, nausea, vomiting, abdominal pain or diarrhea at this time. 07/18/2019 Patient comfortable, continues to have cough and dyspnea, improved, reports sharp pleuritic right-sided chest pain after coughing, reproducible. Patient has no complaints at this time. 10 point review of system is negative except for above PHYSICAL EXAMINATION: VITAL SIGNS: Please see below. GENERAL: No distress HEENT: Normocephalic, atraumatic, moist mucous membranes NECK: Supple CARDIOVASCULAR EXAMINATION: S1, S2, no murmurs RESPIRATORY EXAMINATION: Scattered rhonchi, no wheezing ABDOMINAL EXAMINATION: Soft, nontender, nondistended, positive bowel sounds EXTREMITIES: Range of motion intact SKIN: No rash NEUROLOGICAL EXAMINATION: Alert and oriented 3, no focal deficits PSYCHIATRIC EXAMINATION: Calm and cooperative LABORATORY DATA: See below. IMAGING: CT chest with right upper lobe mass concerning for malignancy/Infection MICROBIOLOGY: Please see below. ASSESSMENT: 48-year-old male with history of untreated Mycobacterium avium complex and toxoplasmosis presents with symptoms concerning for pulmonary tuberculosis/Mycobacterium avium complex. PLAN: 1. Pneumonia Continue Levaquin, workup pending for MAC ID pending. 2. History of toxoplasmosis Treated, patient does not report any history of immunosuppression, HIV negative. DVT prophylaxis: Heparin subcutaneous GI prophylaxis: Not needed VS, I&O, 24H, Fishbone Vital Signs/I&O Vital Signs Date Time Temp Pulse Resp B/P (MAP) Pulse Ox O2 Delivery O2 Flow Rate FiO2 07/18/19 14:57 18 Room Air 07/18/19 14:47 90 2.0 07/18/19 14:00 98.7 85 124/84 (97) I&O- Last 24 Hours up to 6 AM 07/18/19 06:00 Intake Total 3250 ml Output Total 950 ml Balance 2300 ml Laboratory Data 24H LABS Laboratory Tests 2 07/17/19 21:49: Methicillin-Resist S.aureus DNA PCR NOT DETECTED 07/18/19 05:55: 07/18/19 06:09: 07/18/19 06:10: Nucleated Red Blood Cells % (auto) 0.0, Anion Gap 5L, Glomerular Filtration Rate > 60.0, Calcium Level 8.5, Magnesium Level 2.2, Total Bilirubin 0.7, Aspartate Amino Transf (AST/SGOT) 33, Alanine Aminotransferase (ALT/SGPT) 41, Alkaline Phosphatase 64, Total Protein 6.9, Albumin 2.9L, Albumin/Globulin Ratio 0.73L, Immunoglobulin A 398.0, Immunoglobulin G 1330, Immunoglobulin M 87.6, HIV Antigen/Antibody Combo Qual NEGATIVE CBC/BMP Laboratory Tests 07/18/19 06:10 Microbiology Microbiology 07/18/19 Acid Fast Stain - Final, Resulted 07/18/19 Mycobacterial Culture, Resulted Pending 07/17/19 Fungal Smear, Received Pending 07/17/19 Fungal Culture, Received Pending 07/17/19 Acid Fast Stain - Final, Resulted 07/17/19 Mycobacterial Culture, Resulted Pending 07/17/19 Gram Stain - Final, Resulted 07/17/19 Sputum Culture, Resulted Pending 07/17/19 , Received Pending 07/17/19 Respiratory Virus Panel (PCR) ([facility]) - Final, Complete 07/17/19 Blood Culture - Preliminary, Resulted No growth after 24 hours . All specim... 07/17/19 Blood Culture - Preliminary, Resulted No growth after 24 hours . All specim... ISAURA CAMPOS MD Jul 18, 2019 19:59
[2019-07-18 22:00] VITALS: BP 125/76
[2019-07-19] MEDS: MORPHINE 2 MG/ML 1ML VIAL (J2270) IV PRN (04:36)
[2019-07-19 06:00] VITALS: BP 123/76
[2019-07-19] MEDS ORDERED: SODIUM CHLORIDE HYPERTONIC 3% 15ML NEB SOL INH ONE (06:00)
[2019-07-19 06:06] LABS: HEMATOCRIT 40.2 % (42.0-52.0); HEMOGLOBIN 14.3 g/dl (13.5-17.5); MEAN CORPUSCULAR HEMOGLOBIN 33.8 pg (27.0-33.0); MEAN CORPUSCULAR HGB CONC 35.6 g/dl (32.0-36.5); PLATELET COUNT, AUTOMATED 302 10^3/uL (150-450); RED BLOOD COUNT 4.23 10^6/uL (4.30-6.10); WHITE BLOOD COUNT 7.6 10^3/uL (4.0-10.0)
[2019-07-19] MEDS: CYCLOBENZAPRINE 5MG TABLET PO PRN ×2 (06:29→18:08)
[2019-07-19] MEDS: HEPARIN SOD (PORCINE) 5000 UNITS/ML VIAL SC SCH ×3 (06:29→22:34)
[2019-07-19 06:31] LABS: BLOOD UREA NITROGEN 16 MG/DL (7-18); CALCIUM LEVEL 9.1 MG/DL (8.5-10.1); CARBON DIOXIDE LEVEL 26 MEQ/L (21-32); CHLORIDE LEVEL 107 MEQ/L (98-107); CREATININE FOR GFR 0.84 MG/DL (0.70-1.30); GLOMERULAR FILTRATION RATE > 60.0 (>56); GLUCOSE, FASTING 113 MG/DL (70-100); MAGNESIUM LEVEL 2.3 MG/DL (1.8-2.4); PHOSPHORUS LEVEL 3.8 MG/DL (2.5-4.9); POTASSIUM SERUM 4.4 MEQ/L (3.5-5.1); SODIUM LEVEL 140 MEQ/L (136-145)
[2019-07-19] MEDS ORDERED: FLUBLOK(EGG FREE)(QUAD)INFLUENZA VACC 0.5ML SYRINGE (90682)18YRS&OLDER IM ONE (09:00)
[2019-07-19] MEDS: guaiFENesin ER 600 MG TAB PO SCH ×2 (10:09→22:34)
[2019-07-19] MEDS: LevoFLOXacin IV 750 MG in IV 1 EA IV SCH (13:26)
[2019-07-19 14:00] VITALS: BP 129/82
[2019-07-19 15:51] LABS: C REACTIVE PROTEIN QUANTITATIV 5.02 MG/DL (0.00-0.30)
--- NOTE | 2019-07-19 18:05 | IPNPDOC ---
Date Seen The patient was seen on 07/19/19. 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 Patient reports experiencing cough with associated fever, chills and night sweats for the past 10 days. He had a syncopal episode twice during this time, both times while he was coughing. He denies any history of malignancy/HIV/liver disease/diabetes/immune suppressants/IV drug use/being incarcerated. He does report his boss who is also experiencing cough and fever and recently traveled to [facility]. He never got treatment for Mycobacterium avium complex because he did not want to deal with the number of medications and duration of treatment. He has been following with infectious disease at [place] for the past year, last visit was in April when they told him that everything was fine and he no longer needed to follow- up. He reports completing treatment for toxoplasmosis in January of this year. Patient reports having a normal CAT scan in January/February of this year. He denies any personal or family history of lung cancer. He denies any chest pain, nausea, vomiting, abdominal pain or diarrhea at this time. 07/18/2019 Patient comfortable, continues to have cough and dyspnea, improved, reports sharp pleuritic right-sided chest pain after coughing, reproducible. Patient has no complaints at this time. 07/19/2019 Patient reports persistent right-sided pleuritic chest pain, improved, pain recently well-controlled, no other complaints. He continues to have mild cough area 10 point review of system is negative except for above PHYSICAL EXAMINATION: VITAL SIGNS: Please see below. GENERAL: No distress HEENT: Normocephalic, atraumatic, moist mucous membranes NECK: Supple CARDIOVASCULAR EXAMINATION: S1, S2, no murmurs RESPIRATORY EXAMINATION: Scattered rhonchi, no wheezing ABDOMINAL EXAMINATION: Soft, nontender, nondistended, positive bowel sounds EXTREMITIES: Range of motion intact SKIN: No rash NEUROLOGICAL EXAMINATION: Alert and oriented 3, no focal deficits PSYCHIATRIC EXAMINATION: Calm and cooperative LABORATORY DATA: See below. IMAGING: CT chest with right upper lobe mass concerning for malignancy/Infection MICROBIOLOGY: Please see below. ASSESSMENT: 48-year-old male with history of untreated Mycobacterium avium complex and toxoplasmosis presents with symptoms concerning for pulmonary tuberculosis/Mycobacterium avium complex. PLAN: 1. Pneumonia Continue Levaquin, extensive workup for other etiologies negative to date, ID following. 2. History of toxoplasmosis Treated, patient does not report any history of immunosuppression, HIV negative. DVT prophylaxis: Heparin subcutaneous GI prophylaxis: Not needed VS, I&O, 24H, Fishbone Vital Signs/I&O Vital Signs Date Time Temp Pulse Resp B/P (MAP) Pulse Ox O2 Delivery O2 Flow Rate FiO2 07/19/19 14:00 98.5 91 20 129/82 (98) 92 Room Air 07/19/19 10:00 2.0 I&O- Last 24 Hours up to 6 AM 07/19/19 06:00 Intake Total 2100 ml Output Total 1280 ml Balance 820 ml Laboratory Data 24H LABS Laboratory Tests 2 07/19/19 05:47: Nucleated Red Blood Cells % (auto) 0.0, Anion Gap 7L, Glomerular Filtration Rate > 60.0, Calcium Level 9.1, Phosphorus Level 3.8, Magnesium Level 2.3, C-Reactive Protein, Quantitative 5.02H CBC/BMP Laboratory Tests 07/19/19 05:47 Microbiology Microbiology 07/19/19 Acid Fast Stain - Final, Resulted 07/19/19 Mycobacterial Culture, Resulted Pending 07/18/19 Acid Fast Stain - Final, Resulted 07/18/19 Mycobacterial Culture, Resulted Pending 07/17/19 Fungal Smear, Received Pending 07/17/19 Fungal Culture, Received Pending 07/17/19 Acid Fast Stain - Final, Resulted 07/17/19 Mycobacterial Culture, Resulted Pending 07/17/19 Gram Stain - Final, Resulted 07/17/19 Sputum Culture, Resulted Pending 07/17/19 , Received Pending 07/17/19 Respiratory Virus Panel (PCR) ([facility]) - Final, Complete 07/17/19 Blood Culture - Preliminary, Resulted No Growth after 48 hours. All Specime... 07/17/19 Blood Culture - Preliminary, Resulted No Growth after 48 hours. All Specime... ISAURA CAMPOS MD Jul 19, 2019 18:05
--- NOTE | 2019-07-19 19:52 | ECHO ---
DATE OF PROCEDURE: 07/19/2019 REFERRING PHYSICIAN: Dr. Caruso INDICATION: Syncope. Height 183 cm, weight 148 kg. DIMENSIONS: IVS: 1.1 LV: 5.7 LVPW: 1.1 LA: 3.6 Aorta: 3.4 RV: 2.6 Mitral E wave velocity: 58 A wave: 45 E prime septal: 6.3 E prime lateral: 7.9 IVC: 1.5 FINDINGS: The study is of markedly limited technical quality consistent with patient's body habitus. The patient is in sinus rhythm. Left ventricle is normal size and grossly has preserved systolic function. I estimate ejection fraction (EF) around 60%. No distinct wall motion abnormalities are appreciated but quality of the study was fair. Right ventricle does not appear grossly enlarged. Both atria appear normal. All four cardiac valves were reasonably well seen and appear normal. Pericardial fat pad but no effusion is noted. Inferior vena cava is normal size. Aortic root is normal. Aortic arch and abdominal aorta were not well seen. Doppler interrogation reveals normal aortic, mitral, tricuspid and pulmonic valvular function. Mitral inflow pattern and tissue Doppler imaging of mitral annulus reveals probably grade 2 diastolic dysfunction. CONCLUSIONS: 1. Study is of fair technical quality. 2. Borderline dilated left ventricle with normal left ventricular (LV) systolic function and probably grade 2 diastolic dysfunction. 3. No significant valvular disease. 4. Normal central venous pressure. 5. Unable to estimate pulmonary artery pressure. COMMENT: Subacute bacterial endocarditis (SBE) prophylaxis is not recommended. Study does not provide obvious etiology for syncopal event.
[2019-07-19 22:00] VITALS: BP 126/82
--- NOTE | 2019-07-19 22:13 | IPN ---
DATE: 07/19/2019 INFECTIOUS DISEASE PROGRESS NOTE Mr. Salgado seems to be doing much better. He states he is at least 50% better except for some pain in his right chest when he coughs. He has a good appetite. No fever or chills. No nausea, vomiting, or diarrhea. CT chest was reviewed, showed extensive mediastinal and hilar adenopathy appreciated with moderate areas of consolidation, especially in the right hilum to the posterior right upper lobe and a few scattered calcified granulomas, as well as reticulonodular interstitial changes. LABORATORY: White count is 7.6, hemoglobin 14.3, hematocrit 40.2, platelets 302. Sodium 140, potassium 4.4, chloride 107, bicarbonate 26, BUN 16, creatinine 0.84, glucose 113, calcium 9.1, phosphorus 3.8, magnesium 2.3, CRP 5.02 down from 10.1. Procalcitonin was 0.09 on admission. Immunoglobulin total 1330 IgG, IgA 398, IgM 87, CD4 count is pending, IgG subclasses are pending. Cryptococcus antigen antibody are pending. Histoplasma antigen antibody are pending. HIV was negative. Methicillin-resistant Staphylococcus aureus (MRSA) screen was negative. QuantiFERON-TB Gold negative. Microbiology: AFB smear times three are negative. Fungal smear and culture is pending. Sputum culture is pending. Respiratory panel is negative. Blood cultures, two sets, were negative. PHYSICAL EXAMINATION: Temperature is 98.5,pulse 91, respirations 20, blood pressure 129/82, oxygen saturation (O2) saturation 92% on room air. Heart: Normal S1, S2. No murmurs, rubs, or gallops. Distant lungs, diminished breath sounds at the right base with few crackles bilaterally at the bases. Abdomen: Morbidly obese, soft, nontender. Extremities: Trace edema bilaterally. No clubbing or cyanosis. Neurologic Exam: Normal. IMPRESSION: 1. A 48-year-old gentleman with right lobar pneumonia, doing much better with IV Levaquin. The patient will be switched to oral Levaquin 750 mg daily. Sputum culture is still pending, but patient clinically improved with 48 hours of antibiotics. 2. History of Mycobacterium avium complex (MAC) with CT evidence of reticulonodular infiltrate and hilar adenopathy, possibly suggestive of Mycobacterium infection. Patient's sputum acid-fast bacillus (AFBs) have been negative times three. Will wait for culture. If the patient has more than two specimens positive for MAC, he will need to be treated at a later time for Mycobacterium avium complex. 3. History of brain toxoplasmosis. I have discussed the case with Dr. Juventino Curtis who is the infectious disease physician who took care of him at [facility]. She stated that had completely resolved, was felt was related to partially cooked venison. The patient does not have any history of immunosuppression or documented in his previous workup. PLAN: Discontinue IV levofloxacin, switch to oral Levaquin 750 mg daily, to continue as an outpatient for 7 days. Followup at infectious disease office in 2-3 weeks. Please have the patient establish with pulmonary for followup on CAT scan finding. He needs a pulmonary workup, including sleep apnea. Please make him an appointment as an outpatient. A flu shot was given on 07/19/2019.
[2019-07-20 06:00] VITALS: BP 107/70
[2019-07-20] MEDS ORDERED: SODIUM CHLORIDE HYPERTONIC 3% 15ML NEB SOL INH ONE (06:00)
[2019-07-20] MEDS: HEPARIN SOD (PORCINE) 5000 UNITS/ML VIAL SC SCH ×3 (06:11→20:55)
[2019-07-20] MEDS: LevoFLOXacin 750 MG TABLET PO SCH (06:11)
[2019-07-20] MEDS: guaiFENesin ER 600 MG TAB PO SCH ×2 (09:06→20:55)
[2019-07-20] MEDS ORDERED: ALBUTEROL SULFATE 2.5 MG/0.5 ML INH NEB SOLN NEB PRN (12:45)
[2019-07-20 14:00] VITALS: BP 135/84
[2019-07-20 14:57] LABS: HISTOPLASMA GAL'MANNAN AG UR <0.5 (<0.5 ng/mL)
[2019-07-20] MEDS: ACETAMINOPHEN TAB 650MG DOSE (2X325MG) PO PRN (15:26)
--- NOTE | 2019-07-20 18:11 | REP ---
CHEST PA AND LATERAL: 07/20/2019. Comparison: CTA chest and portable chest 07/17/2019, chest x-ray 04/23/2018. Clinical history: Hypoxia, right-sided pneumonia. There is improvement in the right upper lobe linear atelectasis and infiltrate seen on the chest x-ray and CT 07/17/2019. No abnormal widening of the mediastinum. There is mildly tortuous. Some fullness about the right hilum consistent with a adenopathy seen on chest CT scan. No gross effusion. Less patchy atelectasis or infiltrate in the left mid and lower lung zone than on the CT 3 days ago. Impression: 1. Improvement in the bilateral infiltrates particularly in the right upper lung zone but still some hilar adenopathy and linear patchy infiltrate, atelectasis in the right upper lung zone. Some patchy and linear atelectatic change on the left and right medial base also with some minor atelectatic change. No effusions. Electronically Signed by Parveen Garcia MD 07/20/2019 08:02 P
--- NOTE | 2019-07-20 18:49 | IPNPDOC ---
Date Seen The patient was seen on 07/20/19. 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 Patient reports experiencing cough with associated fever, chills and night sweats for the past 10 days. He had a syncopal episode twice during this time, both times while he was coughing. He denies any history of malignancy/HIV/liver disease/diabetes/immune suppressants/IV drug use/being incarcerated. He does report his boss who is also experiencing cough and fever and recently traveled to [facility]. He never got treatment for Mycobacterium avium complex because he did not want to deal with the number of medications and duration of treatment. He has been following with infectious disease at [place] for the past year, last visit was in April when they told him that everything was fine and he no longer needed to follow- up. He reports completing treatment for toxoplasmosis in January of this year. Patient reports having a normal CAT scan in January/February of this year. He denies any personal or family history of lung cancer. He denies any chest pain, nausea, vomiting, abdominal pain or diarrhea at this time. 07/18/2019 Patient comfortable, continues to have cough and dyspnea, improved, reports sha rp pleuritic right-sided chest pain after coughing, reproducible. Patient has no complaints at this time. 07/19/2019 Patient reports persistent right-sided pleuritic chest pain, improved, pain recently well-controlled, no other complaints. He continues to have mild cough area. 07/20/2019 Patient reports improvement in dyspnea, cough and right-sided chest pain, without additional complaints, 10 point review of system is negative except for above PHYSICAL EXAMINATION: VITAL SIGNS: Please see below. GENERAL: No distress HEENT: Normocephalic, atraumatic, moist mucous membranes NECK: Supple CARDIOVASCULAR EXAMINATION: S1, S2, no murmurs RESPIRATORY EXAMINATION: Scattered rhonchi, no wheezing ABDOMINAL EXAMINATION: Soft, nontender, nondistended, positive bowel sounds EXTREMITIES: Range of motion intact SKIN: No rash NEUROLOGICAL EXAMINATION: Alert and oriented 3, no focal deficits PSYCHIATRIC EXAMINATION: Calm and cooperative LABORATORY DATA: See below. IMAGING: CT chest with right upper lobe mass concerning for malignancy/Infection MICROBIOLOGY: Please see below. ASSESSMENT: 48-year-old male with history of untreated Mycobacterium avium complex and toxoplasmosis admitted for PNA. PLAN: 1. Pneumonia Continue Levaquin, extensive workup for other etiologies negative to date, ID following. Requiring supplemental oxygen w/ ambulation, IS ordered. 2. History of toxoplasmosis Treated, patient does not report any history of immunosuppression, HIV negative. DVT prophylaxis: Heparin subcutaneous GI prophylaxis: Not needed VS, I&O, 24H, Fishbone Vital Signs/I&O Vital Signs Date Time Temp Pulse Resp B/P (MAP) Pulse Ox O2 Delivery O2 Flow Rate FiO2 07/20/19 14:00 96.9 112 18 135/84 (101) 89 Room Air 07/20/19 09:00 2.0 I&O- Last 24 Hours up to 6 AM 07/20/19 06:00 Intake Total 1860 ml Output Total 1950 ml Balance -90 ml Laboratory Data Microbiology Microbiology 07/20/19 Acid Fast Stain - Final, Resulted 07/20/19 Mycobacterial Culture, Resulted Pending 07/19/19 Acid Fast Stain - Final, Resulted 07/19/19 Mycobacterial Culture, Resulted Pending 07/18/19 Acid Fast Stain - Final, Resulted 07/18/19 Mycobacterial Culture, Resulted Pending 07/17/19 Fungal Smear, Received Pending 07/17/19 Fungal Culture, Received Pending 07/17/19 Acid Fast Stain - Final, Resulted 07/17/19 Mycobacterial Culture, Resulted Pending 07/17/19 Gram Stain - Final, Complete 07/17/19 Sputum Culture - Final, Complete 07/17/19 , Received Pending 07/17/19 Respiratory Virus Panel (PCR) ([facility]) - Final, Complete 07/17/19 Blood Culture - Preliminary, Resulted No Growth after 72 hours. All specime... 07/17/19 Blood Culture - Preliminary, Resulted No Growth after 72 hours. All specime... ISAURA CAMPOS MD Jul 20, 2019 18:49
[2019-07-20 22:00] VITALS: BP 117/83
[2019-07-21] MEDS: HEPARIN SOD (PORCINE) 5000 UNITS/ML VIAL SC SCH (05:44)
[2019-07-21] MEDS: LevoFLOXacin 750 MG TABLET PO SCH (05:44)
[2019-07-21 06:00] VITALS: BP 121/74
[2019-07-21 07:15] LABS: HEMATOCRIT 46.3 % (42.0-52.0); HEMOGLOBIN 15.2 g/dl (13.5-17.5); MEAN CORPUSCULAR HEMOGLOBIN 29.9 pg (27.0-33.0); MEAN CORPUSCULAR HGB CONC 32.8 g/dl (32.0-36.5); PLATELET COUNT, AUTOMATED 336 10^3/uL (150-450); RED BLOOD COUNT 5.09 10^6/uL (4.30-6.10); WHITE BLOOD COUNT 8.6 10^3/uL (4.0-10.0)
[2019-07-21 07:26] LABS: BLOOD UREA NITROGEN 16 MG/DL (7-18); CALCIUM LEVEL 8.6 MG/DL (8.5-10.1); CARBON DIOXIDE LEVEL 26 MEQ/L (21-32); CHLORIDE LEVEL 107 MEQ/L (98-107); CREATININE FOR GFR 0.86 MG/DL (0.70-1.30); GLOMERULAR FILTRATION RATE > 60.0 (>56); GLUCOSE, FASTING 108 MG/DL (70-100); MAGNESIUM LEVEL 2.2 MG/DL (1.8-2.4); PHOSPHORUS LEVEL 3.6 MG/DL (2.5-4.9); SODIUM LEVEL 140 MEQ/L (136-145)
[2019-07-21] MEDS: guaiFENesin ER 600 MG TAB PO SCH (08:28)
[2019-07-21] MEDS ORDERED: LEVA750T7 PO (10:48)
--- NOTE | 2019-07-21 10:53 | DS.PDOC ---
Discharge Summary General Date of Admission Jul 17, 2019 at 15:41 Date of Discharge 07/21/2019 Attending Physician: ISAURA CAMPOS MD Discharge Summary PROCEDURES PERFORMED DURING STAY: None. ADMITTING DIAGNOSES: 1. Pneumonia. DISCHARGE DIAGNOSES: 1. Pneumonia. COMPLICATIONS/CHIEF COMPLAINT: Mass Of Right Lung Mycobacterium Avium Complex. HISTORY OF PRESENT ILLNESS: 48-year-old male with past medical history of Mycobacterium avium complex and toxoplasmosis was admitted for community- acquired pneumonia. His initial symptoms were concerning for mycobacterial infection, AFB stain negative for 3 consecutive daily cultures, HIV test negative, remaining workup was also negative, patient was evaluated by infectious disease. Patient treated with Levaquin, will be discharged with 3 more days of Levaquin to complete a seven-day course. Patient was initially requiring supplemental oxygen, now ambulating well on room air. Patient is clinically, and hematuria recently for discharge and outpatient follow with infectious disease and PCP.. HOSPITAL COURSE: As above. DISCHARGE MEDICATIONS: Please see below. ALLERGIES: Please see below. PHYSICAL EXAMINATION: VITAL SIGNS: Please see below. GENERAL: No distress HEENT: Normocephalic, atraumatic, moist mucous membranes NECK: Supple CARDIOVASCULAR EXAMINATION: S1, S2, no murmurs RESPIRATORY EXAMINATION: Right-sided rhonchi, no wheezing ABDOMINAL EXAMINATION: Soft, nontender, nondistended, positive bowel sounds EXTREMITIES: Range of motion intact SKIN: No rash NEUROLOGICAL EXAMINATION: Alert and oriented 3, no focal deficits PSYCHIATRIC EXAMINATION: Calm and cooperative LABORATORY DATA: Please see below. IMAGING: CT with pneumonia PROGNOSIS: Fair ACTIVITY: As tolerated. DIET: Regular DISCHARGE PLAN: Follow-up with infectious disease and PCP in 1-2 weeks DISPOSITION: Home. DISCHARGE INSTRUCTIONS: 1. As above. DISCHARGE CONDITION: Stable. TIME SPENT ON DISCHARGE: Greater than 34 minutes. Vital Signs/I&Os Vital Signs Date Time Temp Pulse Resp B/P (MAP) Pulse Ox O2 Delivery O2 Flow Rate FiO2 07/21/19 06:00 97.9 75 18 121/74 (90) 93 Room Air 07/20/19 21:00 2.0 I&O- Last 24 Hours up to 6 AM 07/21/19 06:00 Intake Total 1440 ml Output Total 950 ml Balance 490 ml Laboratory Data Labs 24H Laboratory Tests 2 07/20/19 22:25: 07/21/19 06:42: Nucleated Red Blood Cells % (auto) 0.0, Anion Gap 7L, Glomerular Filtration Rate > 60.0, Calcium Level 8.6, Phosphorus Level 3.6, Magnesium Level 2.2 CBC/BMP Laboratory Tests 07/21/19 06:42 Microbiology Microbiology 07/20/19 Acid Fast Stain - Final, Resulted 07/20/19 Mycobacterial Culture, Resulted Pending 07/19/19 Acid Fast Stain - Final, Resulted 07/19/19 Mycobacterial Culture, Resulted Pending 07/18/19 Acid Fast Stain - Final, Resulted 07/18/19 Mycobacterial Culture, Resulted Pending 07/17/19 Fungal Smear, Received Pending 07/17/19 Fungal Culture, Received Pending 07/17/19 Acid Fast Stain - Final, Resulted 07/17/19 Mycobacterial Culture, Resulted Pending 07/17/19 Gram Stain - Final, Complete 07/17/19 Sputum Culture - Final, Complete 07/17/19 , Received Pending 07/17/19 Respiratory Virus Panel (PCR) ([facility]ATISH) - Final, Complete 07/17/19 Blood Culture - Preliminary, Resulted No Growth after 72 hours. All specime... 07/17/19 Blood Culture - Preliminary, Resulted No Growth after 72 hours. All specime... Discharge Medications Scheduled Guaifenesin (Mucinex) 600 Mg Tab.er.12h, 600 MG PO BID, (Reported) Levofloxacin (Levaquin) 750 Mg Tablet, 750 MG PO DAILY@06 Scheduled PRN Acetaminophen (Acetaminophen) 325 Mg Tablet, 975 MG PO TID PRN for PAIN / FEVER, (Reported) Albuterol Sulfate (Ventolin Hfa) 18 Gm Hfa.aer.ad, 2 PUFF INH Q6H PRN for SHORTN ESS OF BREATH, (Reported) Allergies Coded Allergies: cephalexin (Verified Allergy, Intermediate, rash, 07/17/19) ISAURA CAMPOS MD Jul 21, 2019 10:53
--- NOTE | 2019-07-23 05:56 | IPN ---
DATE: 07/20/2019 INFECTIOUS DISEASE PROGRESS NOTE: Mr. Salgado feels better, but he still has hypoxia. On room air, his oxygen saturation is 89-90%; with exertion, down to 87%. The patient has a cough, which is somewhat productive, mostly of whitish-yellowish phlegm. No hemoptysis. No pleuritic chest pain. He has no nausea, vomiting, or diarrhea. PHYSICAL EXAMINATION: Temperature is 98, pulse 77, respirations 20, blood pressure 107/70, oxygen saturation 90% on 2 liters nasal cannula, 87% with exertion on room air. Heart: Normal S1, S2. Diminished air entry. Abdomen: Soft, obese, nontender. No hepatosplenomegaly. Back: No costovertebral angle (CVA) tenderness. Extremities: +1 pitting edema bilaterally. Oropharynx: no thrush. Chest x-ray that was done on 07/17/2019 was portable, had a triangular area of density in the right upper lung zone concerning for a mass with superimposed opacities that measures 4.4 x 2.2 cm. IMPRESSION: 1. Pneumonia right lobar. On Levaquin IV for 48 hours, now on oral Levaquin. 2. Hypoxia, mostly exertional. Baseline oxygen saturation is about 89-90% on room air with mild dyspnea on exertion. We will order a nebulizer to see if that would help with hypoxia 3. History of brain toxoplasmosis with no headache or recurrent seizure. Patient was supposed to remain on Keppra, but he had discontinued that on his own. PLAN: Continue oral Levaquin. We will obtain chest x-ray, posteroanterior (PA) and lateral, for followup today and use nebulizers to see if that would improve oxygenation. Please refer patient for followup as an outpatient to pulmonary. He needs a sleep apnea workup. LABS: White count 7.6, hemoglobin 14.3, hematocrit 40.2, platelets 302. Cryptococcal antigen antibody pending. Urine histoplasmosis antigen, antibody pending. QuantiFERON TB Gold pending. CD4 count pending. Sputum AFB times three are negative. Patient will be off airborne isolation. This is not tuberculosis. This was conveyed to his primary care provider (PCP) nurse airborne isolation was discontinued. MTDD
[2019-07-24 00:06] LABS: BODY FLUID CULTURE Not Indicated (.); LEGIONELLA ANTIGEN URINE Negative (Negative); ORGANISM ID Not indicated. (.); SPECIMEN SOURCE Urine (.); URINE STREP PNEUMONIAE ANTIGEN Negative (Negative)
== END 2019-07-21 12:24 | disposition home or self-care (01) | DRG 194 ==
LOC: M ED 09:02 → M ED INP 15:41 → M MSPAV 18:49
PROVIDERS: ADMIT Internal Medicine; ATTEND Internal Medicine
DX: J18.9 Pneumonia, unspecified organism (principal); A31.2 Disseminated mycobacterium avium-intracellulare complex (DMAC); F17.290 Nicotine dependence, other tobacco product, uncomplicated; Z86.61 Personal history of infections of the central nervous system; Z79.899 Other long term (current) drug therapy; Z79.51 Long term (current) use of inhaled steroids; Z88.1 Allergy status to other antibiotic agents; Z91.14 Patient's other noncompliance with medication regimen

== ENCOUNTER → 2020-01-05 | Outpatient (CLI) | payer OTHER ==
[~2020-01-05] MED LIST changes: +APAP325T4 PO; +LEVA750T7 PO; +MUCI600T31 PO
--- NOTE | 2020-01-16 10:53 | SLEEPCENT ---
DATE OF STUDY: 01/05/2020 ORDERING PROVIDER: BRIGETTE Cohen Nocturnal polysomnography was performed for evaluation of sleep physiology in this patient with a history of excessive somnolence and nonrestorative sleep. 7 hours and 23 minutes of data were reviewed. There were 345 minutes of sleep identified. Sleep latency was short at 8 minutes. Rapid eye movement (REM) latency was normal at 83 minutes. Sleep architecture initially showed poor progression. Improvement was seen after interventions were made. Overall sleep efficiency was 80.4%. The electrocardiogram showed a sinus rhythm with an average heart rate of 72 beats per minute. Unifocal ventricular ectopic beats were noted. Electroencephalogram (EEG) showed mild coarsening in background. Otherwise, normal waveforms for awake and sleep. There were 211 respiratory events identified of 10 seconds in duration or greater for an apnea-hypopnea index of 36.7. Having established the presence of obstructive sleep apnea syndrome early in testing, the study was stopped shortly before 01:00 a.m. for the application of pressure therapy. The patient was fit with a ResMed F30 full face of medium size. 5 cm of water pressure were applied to the circuit, and the lights were extinguished. Throughout the remaining hours of testing, pressure titration was performed. The patient's apnea persisted despite continuous positive airway pressure (CPAP) pressures of 10. Optimal sleep was seen on a CPAP pressure of +12. IMPRESSION: Severe obstructive sleep apnea syndrome (G47.33). Apnea-hypopnea index 36.7. RECOMMENDATION: Initiation of CPAP to 12 cm of water would seem reasonable based on these results. Close clinical followup will be necessary; and if sleep symptoms are not resolving, return to the sleep disorder center for full night pressure titration would be appropriate.
== END ==
LOC: M SLEEP 20:00
PROVIDERS: ATTEND Physician Assistant
DX: G47.33 Obstructive sleep apnea (adult) (pediatric) (principal)

== ENCOUNTER 2020-12-27 11:16 | Emergency (ER) | payer OTHER ==
[~2020-12-27] VITALS: Ht 182.9 cm; Wt 150.0 kg
[2020-12-27] MEDS ORDERED: BOOSTRIX/ADACEL VACCINE (DIPHTH/PERTUSS/ACELL/TETANUS) 0.5ML SYR IM ONE (11:30)
[2020-12-27] MEDS ORDERED: ONDANSETRON 4MG/2ML VIAL IV ONE (11:35)
[2020-12-27] MEDS: MORPHINE 4 MG/ML 1ML VIAL/SYRINGE (J2270) IV PRN ×2 (11:38→12:43)
[2020-12-27] MEDS ORDERED: KETOROLAC 30 MG/ML 1ML VIAL IV ONE (12:40)
--- NOTE | 2020-12-27 12:42 | REP ---
INDICATION: trauma COMPARISON: None. TECHNIQUE: Four views left hand. FINDINGS: There is no evidence of acute fracture, dislocation, or intrinsic bone disease.There is a small amount of air in the soft tissues between the bases of 2nd and 3rd proximal phalanges. There is a tiny metallic foreign body in the soft tissues anterior to the 5th distal interphalangeal joint. Subcortical cystic changes seen in the head of the 3rd metatarsal. IMPRESSION: No fracture or dislocation. Small amount of air in the soft tissues between bases of 2nd and 3rd proximal phalanges. Tiny metallic foreign body in the soft tissues anterior to the 5th DIP joint. <Electronically signed by Ricardo Calvillo > 12/27/20 [id number]
--- NOTE | 2020-12-27 12:43 | REP ---
INDICATION: trauma COMPARISON: None. TECHNIQUE: Four views right elbow. FINDINGS: There is no evidence of acute fracture, dislocation, or intrinsic bone disease. IMPRESSION: No fracture or dislocation. <Electronically signed by Ricardo Calvillo > 12/27/20 [id number]
--- NOTE | 2020-12-27 12:46 | REP ---
INDICATION: trauma COMPARISON: 04/12/2016. TECHNIQUE: Four views bilateral knees. FINDINGS: There is no evidence of acute fracture, dislocation, or intrinsic bone disease.There are mild degenerative changes in the medial aspects of both joints, with mild joint space narrowing and subchondral sclerosis. IMPRESSION: No fracture or dislocation. Mild degenerative changes. <Electronically signed by Ricardo Calvillo > 12/27/20 [id number]
--- NOTE | 2020-12-27 12:49 | REP ---
INDICATION: trauma COMPARISON: 07/20/2019. TECHNIQUE: AP and lateral. FINDINGS: Lungs: Clear, no infiltrate. Heart: Normal in size. Mediastinum: Mediastinal silhouette unremarkable. Pleural angles: Unremarkable.. Bones and soft tissues: Unremarkable. IMPRESSION: No acute pulmonary disease. <Electronically signed by Ricardo Calvillo > 12/27/20 [id number]
[2020-12-27] MEDS ORDERED: LIDOCAINE 2% MDV 20ML VIAL SC ONE (13:30)
--- NOTE | 2020-12-27 13:40 | REP ---
INDICATION: trauma neg xray severe pain. COMPARISON: X-ray today. TECHNIQUE: Axial CT performed with sagittal and coronal reconstruction images. FINDINGS: There is no evidence of acute fracture or dislocation. If you subcentimeter bone islands are seen in the distal femur. There is mild medial joint space narrowing. There is not a significant joint effusion. There are multiple venous varicosities superficially. There is superficial soft tissue edema medially above the level of the knee joint. IMPRESSION: No acute fracture or dislocation. Medial soft tissue edema superficially above the level of the knee joint. Mild degenerative changes. <Electronically signed by Ricardo Calvillo > 12/27/20 [id number]
[2020-12-27] MEDS ORDERED: PERC5TAB12 PO (14:18)
[2020-12-27] MEDS ORDERED: CLIN150C15 PO (14:32)
[2020-12-27 14:46] VITALS: BP 159/104
== END 2020-12-27 15:02 | disposition home or self-care (01) ==
LOC: M ED 11:16
DX: S61.215A Laceration without foreign body of left ring finger without damage to nail, initial encounter (principal); T14.8XXA Other injury of unspecified body region, initial encounter; V86.95XA Unspecified occupant of 3- or 4- wheeled all-terrain vehicle (ATV) injured in nontraffic accident, initial encounter; Y92.830 Public park as the place of occurrence of the external cause; I10 Essential (primary) hypertension; Z88.1 Allergy status to other antibiotic agents; Z87.891 Personal history of nicotine dependence
CPT/HCPCS: 12001; 71046; 73080; 73130; 73564; 73700; 90471; 90715; 96374; 96375; 96376; 99284; J1885; J2270; J2405

== ENCOUNTER → 2021-01-31 | Outpatient (CLI) | payer OTHER ==
[~2021-01-31] MED LIST changes: +CLIN150C15 PO; +PERC5TAB12 PO
--- NOTE | 2021-01-31 12:42 | REP ---
INDICATION: BILATERAL PRIMARY OSTEOARTHRITIS OF KNEE. COMPARISON: 04/23/2016 TECHNIQUE: Sagittal spin-echo proton density, T2 STIR and T2 FLASH. Coronal spin-echo proton density and fat suppressed proton density. Axial fat suppressed proton density. FINDINGS: The dedicated knee coil could not be utilized to obtain the exam. This causes significant image degradation. In addition, there is marked motion artifact further limiting the exam. Grade 3 signal changes seen within the posterior horn of the medial meniscus. The anterior and posterior horns of the lateral meniscus are within normal limits. The lateral collateral ligament is intact. The medial collateral ligament is thickened and redundant with abnormal hyper signal. The anterior cruciate ligament is seen with multiple abnormally horizontally oriented fibers. The posterior cruciate ligament is seen with T2 hyper signal within its fibers and is abnormally thickened. The quadriceps and patellar tendons are intact. The medial and lateral patellar retinacula are intact. There is a joint effusion. There is advanced cartilaginous thinning and irregularity involving all 3 compartments. IMPRESSION: 1. Markedly limited exam as described above. 2. Evidence of a tear involving the posterior horn of the medial meniscus. 3. Medial collateral ligamentous tear. 4. Anterior cruciate ligament tear and at least posterior cruciate ligament sprain also possible tear. 5. There is a joint effusion 6. There is marrow edema in the lateral femoral condyle near anterior to posterior. 7. 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 8. Other findings as described above. <Electronically signed by Varun Can > 01/31/21 [id number]
== END ==
LOC: M RAD 10:29
PROVIDERS: ATTEND Orthopaedic Surgery
DX: S83.241A Other tear of medial meniscus, current injury, right knee, initial encounter (principal); S83.411A Sprain of medial collateral ligament of right knee, initial encounter; S83.511A Sprain of anterior cruciate ligament of right knee, initial encounter; S83.521A Sprain of posterior cruciate ligament of right knee, initial encounter; M25.461 Effusion, right knee; M17.0 Bilateral primary osteoarthritis of knee; X58.XXXA Exposure to other specified factors, initial encounter; Y92.9 Unspecified place or not applicable; Y99.9 Unspecified external cause status

== ENCOUNTER → 2021-03-06 | Outpatient (CLI) | payer OTHER ==
--- NOTE | 2021-03-07 08:30 | REP ---
INDICATION: CONTUSION OF left KNEE. Injury December 27, 2020. Persistent pain. COMPARISON: Comparison left knee radiographs are from December 27, 2020.. TECHNIQUE: Axial, coronal and sagittal imaging planes utilized. T1, proton density, and T2 weighted scans are included with without fat saturation. FINDINGS: There is no evidence of occult fracture. No Felix's cyst is seen but there is a small joint effusion. There are superficial vein varicosities visible. Patellar and quadriceps tendons are intact. Anterior and posterior cruciate ligaments are intact. There is no evidence of medial collateral ligament disruption. There is however evidence of a partial tear in the lateral collateral ligament. The iliotibial band appears intact. There is adjacent extra-articular soft tissue edema laterally. There is moderate osteoarthritis in the medial tibiofemoral compartment with joint space narrowing, severe chondromalacia, degenerative principally horizontal tear in the body and posterior horn of the medial meniscus with medial meniscus rule extrusion resulting in medial bowing of the MCL. There is subcortical cyst formation in the medial femoral condyle and tibiofemoral spurring is seen medially as well as laterally. No lateral meniscal tear is appreciated. No displaced meniscal material is appreciated. There is severe chondromalacia in the patellofemoral compartment with cartilage loss and subcortical cyst formation in the patella. This is most pronounced in the lateral patellar facet inferiorly. Medial and lateral patellar retinacular structures appear intact. There is mild lateral tibiofemoral spurring as well. 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 IMPRESSION: Three compartment osteoarthritis most pronounced in the medial and patellofemoral compartments. Partial high-grade tear lateral collateral ligament. Degenerative mid body and posterior horn tear medial meniscus with medial meniscal extrusion. <Electronically signed by Rory Muro > 03/07/21 [id number]
== END ==
LOC: M RAD 14:14
PROVIDERS: ATTEND Orthopaedic Surgery
DX: R93.7 Abnormal findings on diagnostic imaging of other parts of musculoskeletal system (principal); S80.01XA Contusion of right knee, initial encounter

== ENCOUNTER → 2021-11-05 | Outpatient (REF) | payer OTHER ==
[~2021-11-05] MED LIST changes: -CLIN150C15 PO; +CLIN150C17 PO; -LEVO500T3 PO; +LEVO500T4 PO
== END ==
LOC: M LAB REF 16:14
PROVIDERS: ATTEND Physician Assistant
DX: J02.9 Acute pharyngitis, unspecified (principal)

== ENCOUNTER → 2023-02-05 | Outpatient (CLI) | payer OTHER ==
[~2023-02-05] MED LIST changes: +LEVO1TAB39 PO; -LEVO500T4 PO
== END ==
LOC: M SLEEP 20:00
PROVIDERS: ATTEND Physician Assistant
DX: G47.33 Obstructive sleep apnea (adult) (pediatric) (principal)